=== PATIENT | female | born 1955 | race Caucasian/White ===

== ENCOUNTER → 2017-01-01 | Outpatient (CLI) | payer MEDICARE, OTHER | LOC: MAMO 11:00 → EDBD 11:02 → MAMO 11:02 | DX: Z12.31 Encounter for screening mammogram for malignant neoplasm of breast (principal); C50.819 Malignant neoplasm of overlapping sites of unspecified female breast; D64.9 Anemia, unspecified; E53.8 Deficiency of other specified B group vitamins; C77.3 Secondary and unspecified malignant neoplasm of axilla and upper limb lymph nodes; Z90.12 Acquired absence of left breast and nipple | CPT/HCPCS: G0202 ==